=== PATIENT | male | born 1970 | race Two or more races ===

== ENCOUNTER 2019-07-12 17:58 | Emergency (ER) | payer MEDICAID ==
[~2019-07-12] VITALS: Ht 177.8 cm; Wt 100.0 kg
[~2019-07-12 17:58] MED LIST: SIMV-259 PO
[2019-07-12] MEDS ORDERED: IBUPROFEN 800 MG TABLET PO ONE (19:00)
[2019-07-12] MEDS ORDERED: DIAZEPAM 5 MG TABLET PO ONE (19:00)
[2019-07-12 21:30] VITALS: BP 128/77
== END 2019-07-12 22:03 | disposition home or self-care (01) ==
LOC: EMS 17:59
DX: S39.012A Strain of muscle, fascia and tendon of lower back, initial encounter (principal); E78.00 Pure hypercholesterolemia, unspecified; I10 Essential (primary) hypertension; F17.210 Nicotine dependence, cigarettes, uncomplicated; Z98.890 Other specified postprocedural states; Z79.899 Other long term (current) drug therapy; X50.9XXA Other and unspecified overexertion or strenuous movements or postures, initial encounter; Y93.89 Activity, other specified; Y92.89 Other specified places as the place of occurrence of the external cause; Y99.8 Other external cause status
CPT/HCPCS: 72100

== ENCOUNTER 2019-08-03 19:42 | Emergency (ER) | payer MEDICAID ==
[~2019-08-03] VITALS: Ht 177.8 cm; Wt 98.6 kg
[2019-08-03] MEDS ORDERED: NAPR-1024 PO (19:52)
[2019-08-03] MEDS ORDERED: CYCL10 PO (19:53)
[2019-08-03 21:53] VITALS: BP 148/95
[2019-08-03] MEDS ORDERED: PredniSONE 20 MG TABLET PO ONE (22:15)
[2019-08-03] MEDS ORDERED: CYCLOBENZAPRINE HCL 10 MG TABLET PO ONE (22:15)
[2019-08-03] MEDS ORDERED: KETOROLAC TROMETHAMINE 30 MG/ML VIAL IM ONE (22:15)
== END 2019-08-03 22:27 | disposition home or self-care (01) ==
LOC: EMS 19:43
DX: M54.16 Radiculopathy, lumbar region (principal); M79.605 Pain in left leg; E78.00 Pure hypercholesterolemia, unspecified; I10 Essential (primary) hypertension; F17.210 Nicotine dependence, cigarettes, uncomplicated; Z98.890 Other specified postprocedural states; Z79.899 Other long term (current) drug therapy
CPT/HCPCS: 96372; 99283; J1885; J7512

== ENCOUNTER 2019-08-11 14:19 | Inpatient (IN) | payer MEDICAID ==
[~2019-08-11] VITALS: Ht 177.8 cm; Wt 95.4 kg
[~2019-08-11 14:19] MED LIST changes: +CYCL10 PO; +NAPR-1024 PO
[2019-08-11] MEDS ORDERED: AMLO5TAB9 PO (14:32)
[2019-08-11] MEDS ORDERED: SODIUM CHLORIDE 0.9% 500 ML IV ONE (14:44)
[2019-08-11] MEDS ORDERED: ADENOSINE 3 MG/ML 2 ML VIAL ONE (14:54)
[2019-08-11 15:43] LABS: BASOPHILS % (AUTO) 0.6 % (0.0-2.0); EOSINOPHILS % (AUTO) 4.8 % (1.0-6.0); HEMATOCRIT 52.1 % (41-53); HEMOGLOBIN 17.5 g/dL (13.5-17.5); LYMPHOCYTES % (AUTO) 23.2 % (22.0-44.0); MEAN CORPUSCULAR HEMOGLOBIN 27.5 pg (26.0-34.0); MEAN CORPUSCULAR HGB CONC 33.6 G/dL (31.0-37.0); MEAN CORPUSCULAR VOLUME 82 fL (80-100); MONOCYTES # (AUTO) 0.5 K/uL (0.1-1.0); MONOCYTES % (AUTO) 5.9 % (2.0-9.0); NEUTROPHILS # (AUTO) 5.6 K/uL (1.8-7.7); NEUTROPHILS % (AUTO) 65.5 % (40.0-70.0); PLATELET COUNT (AUTO) 231 K/uL (150-450); RED BLOOD CELL COUNT(AUTO) 6.37 MIL/uL (4.50-5.90); RED CELL DISTRIBUTION WIDTH 13.6 % (11.5-14.5)
[2019-08-11] MEDS ORDERED: ASPIRIN 325 MG TABLET PO ONE (15:45)
[2019-08-11] MEDS: HEPARIN SODIUM,PORCINE 5,000 UNITS/ML VIAL SQ SCH (15:58)
[2019-08-11 15:59] LABS: ANION GAP 9 mmol/L (8-16); CALCIUM, TOTAL 8.8 mg/dL (8.8-10.5); CARBON DIOXIDE 24 mmol/L (22-29); CHLORIDE 106 mmol/L (98-107); CREATININE 0.92 mg/dL (0.60-1.30); GLOMERULAR FILTR. RATE CALC > 60 mL/min (>60); GLUCOSE,RANDOM 167 mg/dL (70-110); SODIUM SERUM 139 mmol/L (136-145); UREA NITROGEN, BLOOD 18 mg/dL (7-18)
[2019-08-11] MEDS ORDERED: MAGNESIUM HYDROXIDE SUSPENSION 30 ML UDCUP PO PRN (16:00)
[2019-08-11] MEDS ORDERED: ONDANSETRON HCL 4 MG/2 ML VIAL IVP PRN (16:00)
[2019-08-11] MEDS ORDERED: HYDROCODONE/ACETAMINOPHEN 5-325 MG TABLET PO PRN (16:00)
[2019-08-11] MEDS ORDERED: BISACODYL 10 MG RECTAL RECTAL SUPPOSITORY PR PRN (16:00)
[2019-08-11] MEDS ORDERED: ACETAMINOPHEN 325 MG TABLET PO PRN (16:00)
[2019-08-11] MEDS ORDERED: ZOLPIDEM TARTRATE 5 MG TABLET PO PRN (16:00)
[2019-08-11] MEDS ORDERED: MORPHINE SULFATE 2 MG/ML SYRINGE IVP PRN (16:00)
[2019-08-11 16:13] LABS: ALANINE AMINOTRANSFERASE 37 U/L (12-78); ALBUMIN 3.7 g/dL (3.4-5.0); ALKALINE PHOSPHATASE 126 U/L (46-116); ASPARTATE AMINOTRANSFERASE 27 U/L (15-37); BILIRUBIN,TOTAL 0.3 mg/dL (0.1-1.0); THYROID STIMULATING HORMONE 0.98 uIU/mL (0.36-3.74)
[2019-08-11] MEDS: NITROGLYCERIN 2% (1 GM=INCH) PACKET TP SCH (16:14)
[2019-08-11 16:24] LABS: B-TYPE NATRIURETIC PEPTIDE 11 pg/mL (0-100)
[2019-08-11] MEDS ORDERED: ATOR10TA84 PO (16:43)
[2019-08-11] MEDS ORDERED: 0.9% SODIUM CHLORIDE 10 ML SYRINGE IVP PRN (16:45)
[2019-08-11 21:58] VITALS: BP 147/99
[2019-08-11] MEDS: DOCUSATE SODIUM 100 MG CAPSULE PO SCH (22:27)
[2019-08-11] MEDS ORDERED: PNEUMOCOCCAL VACCINE POLYVALENT 0.5 ML VIAL [PPSV23] IM ONE (23:45)
[2019-08-12] MEDS: HEPARIN SODIUM,PORCINE 5,000 UNITS/ML VIAL SQ SCH ×3 (00:26→17:37)
[2019-08-12] MEDS: NITROGLYCERIN 2% (1 GM=INCH) PACKET TP SCH ×3 (00:26→17:37)
[2019-08-12 01:07] VITALS: BP 126/94
[2019-08-12 04:29] LABS: CHOL/HDL RATIO 4.5 (4.2-7.3)
[2019-08-12 05:07] VITALS: BP 105/73
[2019-08-12 07:59] VITALS: BP 112/75
[2019-08-12 10:26] LABS: BASOPHILS % (AUTO) 0.4 % (0.0-2.0); EOSINOPHILS % (AUTO) 5.6 % (1.0-6.0); HEMATOCRIT 46.3 % (41-53); HEMOGLOBIN 15.8 g/dL (13.5-17.5); LYMPHOCYTES # (AUTO) 1.4 K/uL (1.0-4.8); LYMPHOCYTES % (AUTO) 21.6 % (22.0-44.0); MEAN CORPUSCULAR HEMOGLOBIN 27.8 pg (26.0-34.0); MEAN CORPUSCULAR HGB CONC 34.2 G/dL (31.0-37.0); MEAN CORPUSCULAR VOLUME 81 fL (80-100); MONOCYTES # (AUTO) 0.4 K/uL (0.1-1.0); MONOCYTES % (AUTO) 6.4 % (2.0-9.0); NEUTROPHILS # (AUTO) 4.3 K/uL (1.8-7.7); PLATELET COUNT (AUTO) 176 K/uL (150-450); RED BLOOD CELL COUNT(AUTO) 5.69 MIL/uL (4.50-5.90); RED CELL DISTRIBUTION WIDTH 13.3 % (11.5-14.5)
[2019-08-12] MEDS: DOCUSATE SODIUM 100 MG CAPSULE PO SCH ×2 (10:39→20:10)
[2019-08-12] MEDS: SIMVASTATIN 10 MG TABLET PO SCH (10:40)
[2019-08-12] MEDS: PANTOPRAZOLE SODIUM 40 MG DR TABLET PO SCH (10:40)
[2019-08-12] MEDS: NICOTINE 14 MG/24 HOUR PATCH TD SCH (10:40)
[2019-08-12] MEDS: ASPIRIN 81 MG CHEWABLE TABLET PO SCH (10:44)
[2019-08-12 10:45] LABS: ANION GAP 6 mmol/L (8-16); CARBON DIOXIDE 27 mmol/L (22-29); CHLORIDE 104 mmol/L (98-107); CREATININE 0.85 mg/dL (0.60-1.30); GLOMERULAR FILTR. RATE CALC > 60 mL/min (>60); GLUCOSE,RANDOM 96 mg/dL (70-110); POTASSIUM 3.8 mmol/L (3.5-5.1); SODIUM SERUM 137 mmol/L (136-145); THYROID STIMULATING HORMONE 1.57 uIU/mL (0.36-3.74); UREA NITROGEN, BLOOD 13 mg/dL (7-18)
[2019-08-12 12:03] VITALS: BP 120/86
[2019-08-12] MEDS: METOPROLOL SUCCINATE 25 MG ER TABLET PO SCH ×2 (13:36→20:07)
[2019-08-12 17:42] VITALS: BP 117/82
[2019-08-12 19:34] VITALS: BP 112/60
[2019-08-12 21:00] LABS: AMPHET/METH SCREEN,URINE NEGATIVE (NEGATIVE); BARBITURATE SCREEN, URINE NEGATIVE (NEGATIVE); BENZODIAZEPINES SCREEN,URINE NEGATIVE (NEGATIVE); CANNABINOID SCREEN,URINE NEGATIVE (NEGATIVE); COCAINE SCREEN,URINE NEGATIVE (NEGATIVE); METHADONE SCREEN, URINE NEGATIVE (NEGATIVE); OPIATE SCREEN,URINE POSITIVE (NEGATIVE); PHENCYCLIDINE SCREEN,URINE NEGATIVE (NEGATIVE)
[2019-08-13 00:05] VITALS: BP 130/88
[2019-08-13] MEDS: NITROGLYCERIN 2% (1 GM=INCH) PACKET TP SCH ×3 (00:17→17:12)
[2019-08-13] MEDS: HEPARIN SODIUM,PORCINE 5,000 UNITS/ML VIAL SQ SCH ×3 (00:17→17:12)
[2019-08-13 04:29] VITALS: BP 119/72
[2019-08-13 07:17] LABS: BASOPHILS % (AUTO) 0.6 % (0.0-2.0); EOSINOPHILS % (AUTO) 5.4 % (1.0-6.0); HEMATOCRIT 45.8 % (41-53); LYMPHOCYTES % (AUTO) 23.9 % (22.0-44.0); MEAN CORPUSCULAR HEMOGLOBIN 28.1 pg (26.0-34.0); MEAN CORPUSCULAR HGB CONC 34.8 G/dL (31.0-37.0); MEAN CORPUSCULAR VOLUME 81 fL (80-100); MONOCYTES # (AUTO) 0.5 K/uL (0.1-1.0); NEUTROPHILS # (AUTO) 5.2 K/uL (1.8-7.7); NEUTROPHILS % (AUTO) 64.1 % (40.0-70.0); PLATELET COUNT (AUTO) 188 K/uL (150-450); RED BLOOD CELL COUNT(AUTO) 5.67 MIL/uL (4.50-5.90)
[2019-08-13 07:39] LABS: ALANINE AMINOTRANSFERASE 34 U/L (12-78); ALBUMIN 3.4 g/dL (3.4-5.0); ALKALINE PHOSPHATASE 118 U/L (46-116); ANION GAP 9 mmol/L (8-16); ASPARTATE AMINOTRANSFERASE 21 U/L (15-37); BILIRUBIN,TOTAL 0.3 mg/dL (0.1-1.0); CALCIUM, TOTAL 8.9 mg/dL (8.8-10.5); CARBON DIOXIDE 25 mmol/L (22-29); CHLORIDE 105 mmol/L (98-107); CREATININE 0.98 mg/dL (0.60-1.30); GLOMERULAR FILTR. RATE CALC > 60 mL/min (>60); GLUCOSE,RANDOM 106 mg/dL (70-110); POTASSIUM 3.8 mmol/L (3.5-5.1); SODIUM SERUM 139 mmol/L (136-145); THYROID STIMULATING HORMONE 1.11 uIU/mL (0.36-3.74); TOTAL PROTEIN, SERUM 6.4 g/dL (6.4-8.2); UREA NITROGEN, BLOOD 15 mg/dL (7-18)
[2019-08-13 07:40] VITALS: BP 124/71
[2019-08-13] MEDS: DOCUSATE SODIUM 100 MG CAPSULE PO SCH ×2 (09:52→20:47)
[2019-08-13] MEDS: PANTOPRAZOLE SODIUM 40 MG DR TABLET PO SCH (09:52)
[2019-08-13] MEDS: ASPIRIN 81 MG CHEWABLE TABLET PO SCH (09:53)
[2019-08-13] MEDS: SIMVASTATIN 10 MG TABLET PO SCH (09:53)
[2019-08-13] MEDS: METOPROLOL SUCCINATE 25 MG ER TABLET PO SCH (09:53)
[2019-08-13] MEDS: NICOTINE 14 MG/24 HOUR PATCH TD SCH (09:53)
[2019-08-13 11:39] VITALS: BP 114/73
[2019-08-13 15:45] VITALS: BP 119/87
[2019-08-13 20:02] VITALS: BP 110/78
[2019-08-13] MEDS: METOPROLOL SUCCINATE 50 MG ER TABLET PO SCH (20:48)
[2019-08-14] MEDS: HEPARIN SODIUM,PORCINE 5,000 UNITS/ML VIAL SQ SCH ×3 (00:21→15:52)
[2019-08-14] MEDS: NITROGLYCERIN 2% (1 GM=INCH) PACKET TP SCH ×3 (00:21→15:52)
[2019-08-14 00:28] VITALS: BP 110/76
[2019-08-14 04:43] VITALS: BP 114/78
[2019-08-14 06:09] LABS: BASOPHILS % (AUTO) 0.5 % (0.0-2.0); EOSINOPHILS % (AUTO) 5.7 % (1.0-6.0); HEMATOCRIT 46.8 % (41-53); HEMOGLOBIN 16.2 g/dL (13.5-17.5); LYMPHOCYTES % (AUTO) 25.3 % (22.0-44.0); MEAN CORPUSCULAR HEMOGLOBIN 28.2 pg (26.0-34.0); MEAN CORPUSCULAR HGB CONC 34.6 G/dL (31.0-37.0); MEAN CORPUSCULAR VOLUME 81 fL (80-100); MONOCYTES # (AUTO) 0.5 K/uL (0.1-1.0); MONOCYTES % (AUTO) 6.4 % (2.0-9.0); NEUTROPHILS % (AUTO) 62.1 % (40.0-70.0); RED BLOOD CELL COUNT(AUTO) 5.76 MIL/uL (4.50-5.90); RED CELL DISTRIBUTION WIDTH 13.1 % (11.5-14.5)
[2019-08-14 06:48] LABS: CARBON DIOXIDE 26 mmol/L (22-29); CHLORIDE 104 mmol/L (98-107); SODIUM SERUM 138 mmol/L (136-145)
[2019-08-14 06:49] LABS: ALANINE AMINOTRANSFERASE 46 U/L (12-78); ALBUMIN 3.4 g/dL (3.4-5.0); ALKALINE PHOSPHATASE 123 U/L (46-116); ANION GAP 8 mmol/L (8-16); ASPARTATE AMINOTRANSFERASE 31 U/L (15-37); BILIRUBIN,TOTAL 0.3 mg/dL (0.1-1.0); CALCIUM, TOTAL 8.3 mg/dL (8.8-10.5); CREATININE 1.03 mg/dL (0.60-1.30); GLOMERULAR FILTR. RATE CALC > 60 mL/min (>60); GLUCOSE,RANDOM 118 mg/dL (70-110); TOTAL PROTEIN, SERUM 6.6 g/dL (6.4-8.2); UREA NITROGEN, BLOOD 14 mg/dL (7-18)
[2019-08-14 07:16] LABS: PLATELET COUNT (AUTO) 179 K/uL (150-450)
[2019-08-14 07:48] VITALS: BP 127/93
[2019-08-14] MEDS: DOCUSATE SODIUM 100 MG CAPSULE PO SCH ×2 (08:19→20:05)
[2019-08-14] MEDS: PANTOPRAZOLE SODIUM 40 MG DR TABLET PO SCH (08:19)
[2019-08-14] MEDS: METOPROLOL SUCCINATE 50 MG ER TABLET PO SCH ×2 (08:19→20:06)
[2019-08-14] MEDS: SIMVASTATIN 10 MG TABLET PO SCH (08:19)
[2019-08-14] MEDS: ASPIRIN 81 MG CHEWABLE TABLET PO SCH (08:19)
[2019-08-14] MEDS ORDERED: METOPROLOL TARTRATE 5 MG/5 ML VIAL ONE (10:19)
[2019-08-14] MEDS ORDERED: NITROGLYCERIN 400 MCG/SUBLINGUAL SPRAY 4.9 GM BOTTLE SL ONE (10:19)
[2019-08-14] MEDS ORDERED: IOVERSOL 350 MG/ML 150 ML VIAL ONE (10:20)
[2019-08-14] MEDS ORDERED: SODIUM CHLORIDE 0.9% 100 ML ONE (10:20)
[2019-08-14] MEDS ORDERED: METO-391 PO (10:28)
[2019-08-14 16:57] VITALS: BP 132/85
[2019-08-14 19:44] VITALS: BP 117/86
== END 2019-08-14 20:20 | disposition home or self-care (01) | DRG 201 ==
LOC: EMS 14:19 → 5N 20:13
PROVIDERS: ADMIT Internal Medicine; ATTEND Internal Medicine
DX: I47.1 Supraventricular tachycardia (principal); E78.00 Pure hypercholesterolemia, unspecified; E78.5 Hyperlipidemia, unspecified; I10 Essential (primary) hypertension; F17.210 Nicotine dependence, cigarettes, uncomplicated; Z79.899 Other long term (current) drug therapy; Z90.5 Acquired absence of kidney
CPT/HCPCS: 75574; 80307; 83735; 84443; 93005; 93306; 99291; J0153; J1644; J3490; J7040; J7050

== ENCOUNTER 2020-11-15 16:23 | Emergency (ER) | payer MEDICAID ==
[~2020-11-15] VITALS: Ht 172.7 cm; Wt 100.0 kg
[~2020-11-15 16:23] MED LIST changes: +ATOR10TA84 PO; -CYCL10 PO; +METO-391 PO; -NAPR-1024 PO; -SIMV-259 PO
[2020-11-15 18:41] LABS: BASOPHILS % (AUTO) 0.5 % (0.0-2.0); EOSINOPHILS % (AUTO) 1.2 % (1.0-6.0); HEMATOCRIT 45.1 % (41-53); LYMPHOCYTES # (AUTO) 1.1 K/uL (1.0-4.8); MEAN CORPUSCULAR HEMOGLOBIN 27.1 pg (26.0-34.0); MEAN CORPUSCULAR HGB CONC 33.3 G/dL (31.0-37.0); MEAN CORPUSCULAR VOLUME 81 fL (80-100); MONOCYTES # (AUTO) 0.4 K/uL (0.1-1.0); MONOCYTES % (AUTO) 4.6 % (2.0-9.0); NEUTROPHILS # (AUTO) 6.6 K/uL (1.8-7.7); NEUTROPHILS % (AUTO) 80.7 % (40.0-70.0); PLATELET COUNT (AUTO) 192 K/uL (150-450); RED BLOOD CELL COUNT(AUTO) 5.55 MIL/uL (4.50-5.90); RED CELL DISTRIBUTION WIDTH 13.3 % (11.5-14.5)
[2020-11-15 18:52] LABS: ANION GAP 12 mmol/L (8-16); CARBON DIOXIDE 23 mmol/L (22-29); CHLORIDE 105 mmol/L (98-107); CREATININE 0.98 mg/dL (0.60-1.30); GLOMERULAR FILTR. RATE CALC > 60 mL/min (>60); GLUCOSE,RANDOM 110 mg/dL (70-110); SODIUM SERUM 140 mmol/L (136-145); UREA NITROGEN, BLOOD 20 mg/dL (7-18)
[2020-11-15 19:08] LABS: B-TYPE NATRIURETIC PEPTIDE 11 pg/mL (0-100)
[2020-11-15 19:16] LABS: ALANINE AMINOTRANSFERASE 33 U/L (12-78); ALBUMIN 3.7 g/dL (3.4-5.0); ALKALINE PHOSPHATASE 107 U/L (46-116); ASPARTATE AMINOTRANSFERASE 20 U/L (15-37); BILIRUBIN,TOTAL 0.3 mg/dL (0.1-1.0); CREATINE KINASE, TOTAL ONLY 176 U/L (39-308); TOTAL PROTEIN, SERUM 7.1 g/dL (6.4-8.2)
[2020-11-15] MEDS ORDERED: GEMF600T89 PO (19:29)
[2020-11-15] MEDS ORDERED: METO-558 PO (19:29)
[2020-11-15] MEDS ORDERED: POTASSIUM PHOS,M-BASIC-D-BASIC 10 MMOL in DEXTROSE 5%-WATER 100 ML IV ONE (19:30)
[2020-11-15 20:02] LABS: APPEARANCE,URINE CLEAR (CLEAR); BILIRUBIN,URINE NEGATIVE (NEGATIVE); GLUCOSE, URINE (UA) NEGATIVE (NEGATIVE); KETONES,URINE NEGATIVE (NEGATIVE); LEUKOCYTE ESTERASE ,URINE NEGATIVE (NEGATIVE); NITRATE,URINE NEGATIVE (NEGATIVE); OCCULT BLOOD,URINE MODERATE (NEGATIVE); PROTEIN,URINE SEE CONFIRM (NEGATIVE); UROBILINOGEN,URINE 0.2 mg/dL (<=1.0)
[2020-11-15 20:06] LABS: SULFOSALICYLIC ACID,URINE 1+ (Negative)
[2020-11-15 20:17] LABS: WBC,URINE 0-2 /HPF (0-5)
[2020-11-15 20:18] LABS: BACTERIA,URINE None Seen /HPF (None Seen)
[2020-11-15 20:19] LABS: SQUAMOUS EPITHELIAL CELL,UR Rare /LPF (None Seen)
[2020-11-15 22:03] VITALS: BP 128/75
== END 2020-11-15 22:11 | disposition home or self-care (01) ==
LOC: EMS 17:27
DX: R00.2 Palpitations (principal); I10 Essential (primary) hypertension; E78.00 Pure hypercholesterolemia, unspecified; F17.210 Nicotine dependence, cigarettes, uncomplicated
CPT/HCPCS: 36415; 71045; 80053; 81001; 82550; 83735; 83880; 84100; 84484; 85025; 93005; 96365; 96366; 99285; J3490; J7060